=== PATIENT | male | born 1965 | race Caucasian/White ===

== ENCOUNTER 2016-06-09 16:25 | Emergency (ER) | payer BC, OTHER ==
--- NOTE | 2016-06-09 17:52 | EDM.PDOC ---
ED HPI Trauma - General Chief Complaint: Upper Extremity Injury/Pain Stated Complaint: PAIN LT ARM/ELBOW Time Seen by Provider: 06/09/16 16:26 Source: Reports: Patient History Limitations: Reports: No limitations - History of Present Illness INITIAL COMMENTS - FREE TEXT/NARRATIVE: History of present illness: [50-year-old male presents to the ER status post trauma. Patient had a fall at work indicating he fell backwards over a chair landing full force of his weight on his left elbow also whacking his neck in such a way as that he now has neck pain shoulder pain and arm pain on the left side.] Review of systems: As per history of present illness and below otherwise all systems reviewed and negative. Past medical history: As per history of present illness and as reviewed below otherwise noncontributory. Surgical history: As per history of present illness and as reviewed below otherwise noncontributory. Social history: No reported history of drug or alcohol abuse. Family history: As per history of present illness and as reviewed below otherwise noncontributory. Physical exam: HEENT: Atraumatic, normocephalic, pupils reactive, negative for conjunctival pallor or scleral icterus, mucous membranes moist, throat clear, neck supple, nontender, trachea midline. Lungs: Clear to auscultation, breath sounds equal bilaterally, chest nontender. Heart: S1S2, regular, negative for clicks, rubs, or JVD. Abdomen: Soft, nondistended, nontender. Negative for masses or hepatosplenomegaly. Negative for costovertebral tenderness. Pelvis: Stable nontender. Genitourinary: Deferred. Rectal: Deferred. Extremities: Atraumatic, negative for cords or calf pain. Neurovascular unremarkable. Neuro: Awake, alert, oriented. Cranial nerves II through XII unremarkable. Cerebellum unremarkable. Motor and sensory unremarkable throughout. Exam nonfocal. Patient has full range of motion with some guarding noted otherwise assessment is benign. Radiographic studies negative for acute abnormality Diagnostics: [X-ray of the cervical spine left shoulder and left elbow] Therapeutics: [] Impression: [Musculoskeletal pain] Plan: [Muscle relaxer [id number] pain medicine followup with [facility]] Definitive disposition and diagnosis as appropriate pending reevaluation and review of above. Allergies/ADRs: Allergies No Known Allergies Allergy (Verified 06/09/16 17:00) Home Medications: Ambulatory Orders Diclofenac Potassium [Cambia] 50 mg PO 06/09/16 Omeprazole Magnesium [Prilosec Otc] 20 mg PO 06/09/16 Orphenadrine [Norflex] 100 mg PO BID #28 tab.er 06/09/16 methylPREDNISolone [Medrol] 4 mg PO DAILY #21 tab.ds.pk 06/09/16 Past Medical History HEENT History: Reports: None Cardiovascular History: Reports: None Respiratory History: Reports: None Gastrointestinal History: Reports: None Genitourinary History: Reports: None Musculoskeletal History: Reports: None Neurological History: Reports: None Psychiatric History: Reports: None Endocrine/Metabolic History: Reports: None Hematologic History: Reports: None Immunologic History: Reports: None Oncologic (Cancer) History: Reports: None Dermatologic History: Reports: None - Infectious Disease History Infectious Disease History: Reports: None - Past Surgical History Head Surgeries/Procedures: Reports: None HEENT Surgical History: Reports: Tonsillectomy Cardiovascular Surgical History: Reports: None Respiratory Surgical History: Reports: None GI Surgical History: Reports: None Male Surgical History: Reports: None Endocrine Surgical History: Reports: None Neurological Surgical History: Reports: None Musculoskeletal Surgical History: Reports: Other (see below) Other Musculoskeletal Surgeries/Procedures:: Heel spur Dermatological Surgical History: Reports: None Social & Family History - Family History Family Medical History: Noncontributory - Tobacco Use Smoking Status *Q: Never Smoker Second Hand Smoke Exposure: No - Caffeine Use Caffeine Use: Reports: Coffee - Recreational Drug Use Recreational Drug Use: No Review of Systems - Review of Systems Review Of Systems: See Below (See history of present illness) Trauma Exam - Physical Exam Exam: See Below (See history of present illness) Course - Vital Signs Last Recorded V/S: Last Vital Signs Temp 36.8 C 06/09/16 16:56 Pulse 78 06/09/16 16:56 Resp 16 06/09/16 16:56 BP 157/101 H 06/09/16 16:56 Pulse Ox 98 06/09/16 16:56 - Orders/Labs/Meds Orders: Active Orders 24 hr Category Date Time Status Cervical Spine 2V or 3V [CR] Stat Exams 06/09/16 17:39 Taken Elbow Min 3V Lt [CR] Stat Exams 06/09/16 17:39 Taken Shoulder Comp Lt [CR] Stat Exams 06/09/16 17:39 Taken Departure - Departure Time of Disposition: 19:35 Disposition: Home, Self-Care 01 Condition: good Clinical Impression: Musculoskeletal pain Forms: ED Department Discharge Additional Instructions: The following information is given to patients seen in the emergency department who are being discharged to home. This information is to outline your options for follow-up care. We provide all patients seen in our emergency department with a follow-up referral. The need for follow-up, as well as the timing and circumstances, are variable depending upon the specifics of your emergency department visit. If you don't have a primary care physician on staff, we will provide you with a referral. We always advise you to contact your personal physician following an emergency department visit to inform them of the circumstance of the visit and for follow-up with them and/or the need for any referrals to a consulting specialist. The emergency department will also refer you to a specialist when appropriate. This referral assures that you have the opportunity for follow-up care with a specialist. All of these measure are taken in an effort to provide you with optimal care, which includes your follow-up. Under all circumstances we always encourage you to contact your private physician who remains a resource for coordinating your care. When calling for follow-up care, please make the office aware that this follow-up is from your recent emergency room visit. If for any reason you are refused follow-up, please contact the [facility] Emergency Department at and asked to speak to the emergency department charge nurse. Take medication as directed Followup with occupational health as directed by employer in need for return to work Return to ED as needed as discussed - My Orders Last 24 Hours: My Active Orders 06/09/16 17:39 Cervical Spine 2V or 3V [CR] Stat Elbow Min 3V Lt [CR] Stat Shoulder Comp Lt [CR] Stat - Assessment/Plan Last 24 Hours: My Active Orders 06/09/16 17:39 Cervical Spine 2V or 3V [CR] Stat Elbow Min 3V Lt [CR] Stat Shoulder Comp Lt [CR] Stat
[2016-06-10 01:16] VITALS: BP 142/87
--- NOTE | 2016-06-10 11:17 | CR ---
EXAM DATE: 06/09/16 PATIENT'S AGE: 50 Patient: SAMRA PLUMMER Facility: [place], [place] Site . Site : 1965 Study: XRay Shoulder [id number]/13/2017 6:37:47 PM Ordering Physician: Doctor Piña Final Report: HISTORY: Fall. FINDINGS: Three views of the left shoulder demonstrates moderate to marked degenerative changes of the AC joint with decreased joint space and spurring. There is normal alignment of the glenohumeral joint present. No fracture or dislocation is seen. IMPRESSION: 1. Degenerative changes of the AC joint. 2. No acute fracture or dislocation. Dictated by Carmel Warner MD @ 06/09/2016 6:44:48 PM Dictated by: Carmel Warner MD @ 06/09/2016 18:44:55 (Electronic Signature) Report Signed by Proxy and Original Signed Document filed in the Medical Record. CHUCHO
--- NOTE | 2016-06-10 11:18 | CR ---
EXAM DATE: 06/09/16 PATIENT'S AGE: 50 Patient: SAMRA PLUMMER Facility: [place], [place] Site . Site : 1965 Study: XRay Spine Cervical [id number]/13/2017 6:38:06 PM Ordering Physician: Doctor Piña Final Report: HISTORY: Fall. FINDINGS: Four views of the cervical spine demonstrate the dens is intact. The lateral masses are situated normally on C2. The ISREAL is normal. The prevertebral soft tissues are normal. There is normal alignment present. Disc spaces and vertebral body heights maintained. No fracture is seen. IMPRESSION: No acute fracture or traumatic subluxation. Dictated by Carmel Warner MD @ 06/09/2016 6:46:10 PM Dictated by: Carmel Warner MD @ 06/09/2016 18:46:15 (Electronic Signature) Report Signed by Proxy and Original Signed Document filed in the Medical Record. CHUCHO
--- NOTE | 2016-06-10 11:19 | CR ---
EXAM DATE: 06/09/16 PATIENT'S AGE: 50 Patient: SARMA PLUMMER Facility: [place], [place] Site . Site : 1965 Study: XRay Extremity elbow [id number]/13/2017 6:38:26 PM Ordering Physician: Doctor Piña Final Report: HISTORY: Fall. FINDINGS: Three views of the left elbow do not reveal a joint effusion. There is normal alignment present. No fracture line is seen. The radial head and neck appear intact. IMPRESSION: No fracture identified within the left elbow. Dictated by Carmel Warner MD @ 06/09/2016 6:47:05 PM Dictated by: Carmel Warner MD @ 06/09/2016 18:47:10 (Electronic Signature) Report Signed by Proxy and Original Signed Document filed in the Medical Record. CHUCHO
== END 2016-06-09 19:55 | disposition home or self-care (01) ==
LOC: MW.ED 16:25
DX: M79.1 Myalgia (principal); Z79.899 Other long term (current) drug therapy; Z98.890 Other specified postprocedural states
CPT/HCPCS: 72040; 72040-26; 73030-26-LT; 73030-LT; 73080-26-LT; 73080-LT; 99283

== ENCOUNTER 2019-06-29 16:35 | Emergency (ER) | payer OTHER ==
[2019-06-29] MEDS ORDERED: Diphtheria,Pertussis(Acell),Tetanus Vaccine 0.5 ML Syringe IM ONE (16:37)
[2019-06-29] MEDS ORDERED: Sodium Chloride 0.9% 1,000 ML IV ONE (16:37)
[2019-06-29] MEDS ORDERED: fentaNYL 100 MCG/2 ML SDV IVPUSH ONE ×2 (16:37→17:24)
--- NOTE | 2019-06-29 17:10 | CR ---
INDICATION: trauma TECHNIQUE: Chest 1 view. COMPARISON: None. FINDINGS: Cardiovascular and mediastinum: Heart size and vasculature are normal in caliber and appearance. Mediastinum is within normal limits. Lungs and pleural space: Lungs are clear. No sign of infiltrate or mass. No sign of pleural effusion. No pneumothorax. Bones and soft tissues: No significant findings. IMPRESSION: Unremarkable chest. Dictated by: Renan Escobar MD @ 06/29/2019 17:09:57 (Electronically Signed)
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
--- NOTE | 2019-06-29 17:20 | CR ---
INDICATION: trauma TECHNIQUE: Right forearm 2 views. COMPARISON: None. FINDINGS: Bones: Alignment is normal. No fractures or bone lesions. Joint spaces: Unremarkable. Soft tissues: Unremarkable. IMPRESSION: Unremarkable right forearm. Dictated by: Renan Escobar MD @ 06/29/2019 17:19:28 (Electronically Signed)
[2019-06-29 17:25] LABS: BLOOD UREA NITROGEN,BUN 13 mg/dL (7.0-18.0); CARBON DIOXIDE,CO2 27.6 mmol/L (21.0-32.0); CHLORIDE,CL 104 mmol/L (98-107); GLUCOSE RANDOM 121 mg/dL (74-106); POTASSIUM,K 3.6 mmol/L (3.5-5.1); SODIUM,NA 140 mmol/L (136-148)
[2019-06-29] MEDS ORDERED: Iopamidol 755 Mg/ML 100 ML Bottle IVPUSH STA (17:50)
[2019-06-29 18:19] VITALS: BP 167/102; PULSE 88
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
== END 2019-06-29 18:50 | disposition home or self-care (01) ==
LOC: MW.ED 16:35
DX: S22.41XA Multiple fractures of ribs, right side, initial encounter for closed fracture (principal); S50.811A Abrasion of right forearm, initial encounter; R91.1 Solitary pulmonary nodule; Z79.899 Other long term (current) drug therapy; X58.XXXA Exposure to other specified factors, initial encounter
CPT/HCPCS: 36415; 71045; 71260; 73090; 74177; 80053; 85025; 86850; 86900; 86901; 90471; 90715; 96374; 99285; J3010; J7030; Q9967; 99283

== ENCOUNTER 2022-03-18 22:10 | Emergency (ER) | payer BC ==
[2022-03-18 22:22] VITALS: PULSE 104
[2022-03-18] MEDS ORDERED: Nitroglycerin 0.4 MG Tab.SL SL PRN (22:24)
[2022-03-18] MEDS ORDERED: Aspirin 81 MG Tab.Chew PO ONE (22:24)
[2022-03-18 22:31] VITALS: BP 175/113
[2022-03-18] MEDS ORDERED: Enoxaparin 150 MG/1 ML Syringe SUBCUT ONE (22:33)
[2022-03-18 23:02] LABS: CARBON DIOXIDE,CO2 30.8 mmol/L (21.0-32.0); POTASSIUM,K 3.5 mmol/L (3.5-5.1)
== END 2022-03-18 23:31 ==
LOC: MW.ED 22:10
DX: I25.9 Chronic ischemic heart disease, unspecified (principal)
CPT/HCPCS: 36415; 71045; 80053; 83735; 83880; 84484; 85025; 85610; 85730; 93005; 96372; 99285; A9270; J1650

== ENCOUNTER 2022-08-12 19:37 | Emergency (ER) | payer BC ==
[2022-08-12] MEDS ORDERED: Bacitracin Oint 28.35 GM Tube ONE (22:54)
[2022-08-12 23:20] VITALS: BP 130/90; PULSE 58
[2022-08-13] MEDS ORDERED: Bacitracin Oint 28.35 GM Tube TOP SCH (06:00)
== END 2022-08-12 23:00 | disposition home or self-care (01) ==
LOC: MW.ED 19:37
DX: T81.31XA Disruption of external operation (surgical) wound, not elsewhere classified, initial encounter (principal); Z95.1 Presence of aortocoronary bypass graft
CPT/HCPCS: 99283; A9270